=== PATIENT | male | born 1965 | race Caucasian/White ===

== ENCOUNTER 2022-04-30 05:20 | Emergency (ER) | payer BC ==
[~2022-04-30] VITALS: Ht 180.3 cm; Wt 113.4 kg
[~2022-04-30 05:20] MED LIST: LISI40TA13 PO
--- NOTE | 2022-04-30 05:45 | NUR ---
PATIENT TO ROOM #4 VIA WHEEL CHAIR WITH C/O FLANK PAIN, STATES HAS HISTORY OF SUCH. INFORMED OF PLAN OF CARE ASSISTED INTO GOWN, AWAITING MD EXAM NO S/S OF ANY DISTRESS NOTED AT THIS TIME.
--- NOTE | 2022-04-30 05:48 | NUR ---
MD AT BEDSIDE AT THIS TIME TALKING WITH PATIENT.
[2022-04-30] MEDS ORDERED: HYDROMORPHONE 1 MG/1 ML DISP.SYRIN IV ONE (06:00)
[2022-04-30] MEDS ORDERED: KETOROLAC TROMETHAMINE 15 MG INJ IVP ONE (06:00)
[2022-04-30] MEDS ORDERED: ONDANSETRON 4 MG/2 ML VIAL IV ONE (06:00)
[2022-04-30] MEDS ORDERED: ONDANSETRON 4 MG/2 ML VIAL ONE (06:00)
[2022-04-30] MEDS ORDERED: HYDROMORPHONE 1 MG/1 ML DISP.SYRIN ONE (06:01)
[2022-04-30] MEDS ORDERED: KETOROLAC TROMETHAMINE 15 MG INJ ONE (06:01)
--- NOTE | 2022-04-30 06:16 | NUR ---
#20G EDTABLISHED IN LEFT AC AREA UNABLE TO DRAW BLOOD AT THIS TIME. LAB AT BEDSIDE. PATIENT AWARE OF NEED FOR URINE SPECIMEN, URINAL AT BEDSIDE.
[2022-04-30 06:20] LABS: HEMATOCRIT 35.1 % (36.7-47.1); MEAN CORPUSCULAR HEMOGLOBIN 27.6 uug (23.8-33.4); MEAN CORPUSCULAR VOLUME 85.1 fL (73.0-96.2); PLATELET COUNT (AUTO) 268 K/uL (152-348)
--- NOTE | 2022-04-30 06:23 | NUR ---
PATIENT HAS BEEN MEDICATED PER ORDER.
[2022-04-30 06:41] LABS: BILIRUBIN,DIRECT 0.2 mg/dL (0.0-0.2); BILIRUBIN,TOTAL 0.8 mg/dL (0.2-1.0); CREATININE 1.2 mg/dL (0.6-1.3); POTASSIUM 3.9 mmol/L (3.5-5.1); TOTAL PROTEIN, SERUM 7.7 g/dL (6.4-8.2)
--- NOTE | 2022-04-30 06:59 | NUR ---
Ultrasound at bedside.
--- NOTE | 2022-04-30 07:36 | NUR ---
1st contact with patient: AOx4, calm and breathing easily, sitting on the gurney with no flank pains at the moment, +mild headaches, no nausea, MD notified. Patient wants ice pack for his head, for results and disposition.
[2022-04-30 07:50] LABS: *BILIRUBIN,URIN NEGATIVE (NEGATIVE); *BLOOD, URINE NEGATIVE (NEGATIVE); *CLARITY,URINE CLEAR (CLEAR); *COLOR,URINE YELLOW (YELLOW); *KETONES,URINE NEGATIVE (NEGATIVE); *UROBILINOGEN,URINE 0.2 E.U./dl (NORMAL); LEUKOCYTE ESTERASE ,URINE NEGATIVE (NEGATIVE); NITRITE, URINE NEGATIVE (NEGATIVE); PH,URINE 6.5 (5.0-8.0); UGLUCOSE NEGATIVE (NEGATIVE)
--- NOTE | 2022-04-30 08:11 | NUR ---
Patient wants CT scan, MD aware.
--- NOTE | 2022-04-30 09:57 | NUR ---
Patient is for discharge per MD. IV removed. Catheter intact and site benign. Pressure and 4x4 gauze applied to site. No bleeding noted, pending discharge papers@this time.
[2022-04-30] MEDS ORDERED: CYCL10TA9 PO (10:03)
[2022-04-30] MEDS ORDERED: TRAM50TA2 PO (10:03)
--- NOTE | 2022-04-30 10:09 | NUR ---
Patient discharged to home in stable condition with brisk steady gait. Written and verbal after care instructions given. Patient verbalized understanding and compliance of instructions. Stressed follow up with your primary doctor and urologist or return to ER for worsening s/s.
--- NOTE | 2022-04-30 10:10 | NUR ---
Patient will wait in the ER waiting room for his ride.
--- NOTE | 2022-04-30 10:40 | NUR ---
Another copy of all his ER tests' were provided again (per patient's request).
[2022-04-30 11:29] LABS: MUCUS,URINE FEW /LPF (0-FEW); RBC,URINE NONE SEEN /HPF (0-3); WBC,URINE 0-3 /HPF (0-3)
[2022-04-30 11:30] LABS: BACTERIA,URINE NONE SEEN /HPF (NONE SEEN); SQUAMOUS EPITHELIAL CELL,UR NONE SEEN /HPF (NONE SEEN)
[2022-04-30 12:27] LABS: LYMPHOCYTES % (MANUAL) 16 % (20-40); MONOCYTES % (MANUAL) 9 % (2-10); NEUTROPHILS % (MANUAL) 75 % (42-75)
== END 2022-04-30 10:10 | disposition home or self-care (01) ==
LOC: ER 05:33
DX: R10.9 Unspecified abdominal pain (principal); M54.50 Low back pain, unspecified; N21.0 Calculus in bladder; Z87.442 Personal history of urinary calculi; Z20.822 Contact with and (suspected) exposure to COVID-19; K92.1 Melena; Q27.39 Arteriovenous malformation, other site
CPT/HCPCS: 99285; 74176; 96374; 76770; 96375; 87426; 80076; 80048; 81001; 85025; 86850; 86900; 86901; 36415; 76775; 85007; J1885; J2405; J1170; 70030-TC; A4663